=== PATIENT | male | born 1945 | race Caucasian/White ===

== ENCOUNTER 2024-09-23 08:22 | Outpatient (CLI) | payer MEDICARE ==
[2024-09-23 08:58] LABS: BASOPHILS # (AUTO) 0.1 X10'3 (0-0.2); BASOPHILS % (AUTO) 0.9 % (0-1); EOSINOPHILS # (AUTO) 0.1 X10'3 (0-0.9); EOSINOPHILS % (AUTO) 0.7 % (0-6); HEMATOCRIT 45.8 % (42.0-52.0); HEMOGLOBIN 15.3 g/dl (14.0-17.9); LYMPHOCYTES # (AUTO) 1.4 X10'3 (1.1-4.8); LYMPHOCYTES % (AUTO) 17.4 % (21-51); MEAN CORPUSCULAR HEMOGLOBIN 32.1 PG (27.0-31.0); MEAN CORPUSCULAR HGB CONC 33.5 g/dL (33.0-36.5); MEAN CORPUSCULAR VOLUME 95.7 FL (78-98); MEAN PLATELET VOLUME 7.2 FL (7.4-10.4); MONOCYTES # (AUTO) 0.8 X10'3 (0-0.9); MONOCYTES % (AUTO) 9.9 % (2-12); NEUTROPHILS # (AUTO) 5.6 X10'3 (1.8-7.7); NEUTROPHILS % (AUTO) 71.1 % (42-75); PLATELET COUNT 200 X10'3 (140-440); RED BLOOD COUNT 4.78 X10'6 (4.70-6.10); RED CELL DISTRIBUTION WIDTH 16.4 % (11.5-14.5); WHITE BLOOD COUNT 7.9 X10'3 (4.5-11.0)
[2024-09-23 09:10] LABS: APTT 24 SECONDS (22-32)
[2024-09-23 09:23] LABS: ALANINE AMINOTRANSFERASE 45 U/L (12-78); ALBUMIN 3.1 G/DL (3.4-5.0); ALBUMIN/GLOBULIN RATIO 0.9 (1.1-1.5); ALKALINE PHOSPHATASE 372 IU/L (46-116); ANION GAP 6 (8-16); ASPARTATE AMINO TRANSFERASE 23 U/L (10-37); BILIRUBIN,TOTAL 0.6 MG/DL (0.1-1.0); BLOOD UREA NITROGEN 20 MG/DL (7-18); BUN/CREATININE RATIO 22.5 (10.0-20.0); CALCIUM 8.6 MG/DL (8.5-10.1); CHLORIDE 106 MMOL/L (99-107); CREATININE 0.89 MG/DL (0.60-1.10); GLUCOSE 93 MG/DL (70-104); POTASSIUM 4.1 MMOL/L (3.5-5.1); SODIUM 140 MMOL/L (135-145); TOTAL CARBON DIOXIDE 28.3 MMOL/L (24-32); TOTAL PROTEIN 6.4 G/DL (6.4-8.2); eGFR 83 ML/MIN
--- NOTE | 2024-09-23 10:44 | VASCULAR REPORT ---
Carotid Duplex Clinical History: TAVR Comparison: None Technique: Duplex Doppler evaluation of the extracranial carotid and vertebral arteries including color Doppler and spectral/pulsed waveform analysis was performed. Findings: RIGHT SIDE: The peak systolic velocities are 83 cm/s in the CCA, 69 cm/s in the ICA. The ICA/CCA ratio is 1.01. The external carotid artery is patent with peak systolic velocity of 113 cm/s proximally. The subclavian artery is patent with peak systolic velocity of 102 cm/s. There is appropriate antegrade flow in the right vertebral artery. LEFT SIDE: The peak systolic velocities are 134 cm/s in the CCA, 80 cm/s in the ICA. The ICA/CCA ratio is 0.88. The external carotid artery is patent with peak systolic velocity of 109 cm/s proximally. The subclavian artery is patent with peak systolic velocity of 83 cm/s. There is appropriate antegrade flow in the left vertebral artery. IMPRESSION: Less than 50% stenosis of bilateral carotid systems secondary to presence of atherosclerotic plaque. Antegrade flow is present in bilateral vertebral bodies. Multiphasic flow is present in the bilatera l subclavian arteries. Reference: Radiology 2003; 229:340-346 Normal ICA PSV is <125 cm/sec and no plaque or intimal thickening is visible sonographically addition al criteria include ICA/CCA PSV ratio <2.0 and ICA EDV <40 cm/sec <50% ICA stenosis ICA PSV is <125 cm/sec and plaque or intimal thickening is visible sonographically additional criteria include ICA/CCA PSV ratio <2.0 and ICA EDV <40 cm/sec 50-69% ICA stenosis ICA PSV is 125-230 cm/sec and plaque is visible sonographically additional criter ia include ICA/CCA PSV ratio of 2.0-4.0 and ICA EDV of 40-100 cm/sec 70% ICA stenosis but less than near occlusion ICA PSV is >230 cm/sec and visible plaque and luminal narrowing are seen at fuentes-scale and color Doppler ultrasound (the higher the Doppler parameters lie above the threshold of 230 cm/sec, the greater the likelihood of severe disease) additional criteria include ICA/CCA PSV ratio >4 and ICA EDV >100 cm/sec
[2024-09-23] MEDS ORDERED: IODIXANOL 320 MG/ML INFUS..BTL 100ML IV ONE (11:11)
--- NOTE | 2024-09-23 11:50 | RADIOLOGY REPORT ---
DI CHEST,TWO VIEWS CLINICAL HISTORY: AV STENOSIS,SOB,CAROTID STENOSIS COMPARISON: None TECHNIQUE: Frontal and lateral view of the chest was obtained FINDINGS: Lines and Tubes: None Lungs: No focal consolidation. Pleura: No effusion. No pneumothorax. Cardiomediastinal contours: Unremarkable Bones: No acute osseous abnormality. IMPRESSION: No acute cardiopulmonary disease.
--- NOTE | 2024-09-23 12:45 | ELECTROCARDIOGRAPH REPORT ---
[facility] Test Date: 2024-09-23 Test Time: 08:55:34 Pat Name: VILMA STALEY Department: PRE/OP CARDIOLOGY Room: Gender: M Office Coordinator Receptionist: JOHNNIE : 1945 Requested By: DUARTE MANNING Order Number: [id number] Reading MD: Dr. Irvin Lester Measurements Intervals Smoot Rate: 67 P: 17 MA: 167 QRS: -36 QRSD: 96 T: 71 QT: 403 QTc: 426 Interpretive Statements Sinus rhythm [employer] Inferior infarct, old Electronically Signed On 09-24-2024 6:50:[address] Irvin Lester Please click the below link to view image of tracing.
--- NOTE | 2024-09-23 18:42 | CARDIOLOGY REPORT ---
APPROVED REPORT EXAM: Limited 2D, Doppler, and color-flow Echocardiogram. Patient Location: OUT-PATIENT Blood Pressure: 108 / 55 mmHg Heart Rate: 68 bpm Rhythm: SINUS Indications PRE - TAVR RE-ASSESSMENT OF AORTIC VALVE Communication Arts Lecturer: Estephanie MARTIN MD / Inteventionalist: Estephanie Daniels MD Previous echo: 2D Dimensions LVOT Diameter 2.39 (1.8-2.4cm) Ao Asc Diam.4.00 cm M-Mode Dimensions Left Atrium(MM) 4.38 (2.5-4.0cm) IVSd 1.07 (0.7-1.1cm) LVDd 4.67 (4.0-5.6cm) Aortic Root 4.01 (2.2-3.7cm) PWd 0.97 (0.7-1.1cm) IVSs 1.43 cm LVDs 3.28 (2.0-3.8cm) FS (%) 30 % PWs 1.46 cm ESV(Teich) 43.3 ml LVEF(%) 57 (>50%) Aortic Valve AoV Peak Uday. 392.1 cm/s AoV VTI 78.0 cm AO Peak GR. 62.0 mmHg AO Mean GR. 36 mmHg LVOT VTI 20.02 cm LVOT Peak Uday. 98.3 cm/s CAITIE (VMAX) 1.12 cm2 CAITIE (VTI) 1.15 cm2 LEFT VENTRICLE Normal LV size and wall thickness. Overall systolic function is normal. LVEF is 65-70%. RIGHT VENTRICLE RV is normal size and function. ATRIA Left atrium is mildly dilated. AORTIC VALVE Trileaflet AV appears heavily calcified with significant stenosis demonstrated by reduced excursion a nd increased transvalvular and ascending aorta turbulance. CAITEI is measured at 1.12 cmsq. Peak / mean gradients of 62 / 36 mmHG. Peak velocity is measured at 3.92 m/sec. Mild insufficiency. MITRAL VALVE Mild MV annular calcification without stenosis. Trace regurgitation. TRICUSPID VALVE TV appears structurally normal with trace regurgitation. PULMONIC VALVE Normal PV without stenosis, physiologic insufficiency. GREAT VESSELS Aortic root is mildly dilated. Ascending aorta is dilated. PERICARDIUM Normal pericardium. No effusion. Conclusion Normal LV size and wall thickness. Overall systolic function is normal. LVEF is 65-70%. RV is normal size and function. Left atrium is mildly dilated. Trileaflet AV appears heavily calcified with significant stenosis demonstrated by reduced excursion a nd increased transvalvular and ascending aorta turbulance. CAITIE is measured at 1.12 cmsq. Peak / miguel angel n gradients of 62 / 36 mmHG. Peak velocity is measured at 3.92 m/sec. Mild insufficiency. Mild MV annular calcification without stenosis. Trace Mild moderate severe regurgitation. TV appears structurally normal with trace regurgitation. Aortic root is mildly dilated. Ascending aorta is dilated. Normal pericardium. No effusion.
--- NOTE | 2024-09-25 16:38 | RADIOLOGY REPORT ---
Procedure: CT CTA TAVR Reason for study/Clinical History: Chest pain, evaluate for dissection. Comparison Study: None Exam Date: 09/23/2024 11:28 AM TECHNIQUE: Multiplanar reformatted images were generated from volumetric data acquired on a multidetector CT [facility]. Cardiac gating was utilized. Arterial phase images were obtained through the chest, abdomen and pelvis following intravenous administration of contrast material. 100 mL visipaque [address] dose reduction techniques were utilized. 3-D reconstructions were performed on an independent work station. Radiation Dose Information: CT Dose: CTDI volume is 74 mGy. Dose-length product is 2801 mGy*cm FINDINGS: Vascular: Aortic measurements: Aortic annulus: 30.8 x 25.1 mm Sinus of valsalva: right cusp 38.4 mm, left cusp 39.1 mm, non-coronary cusp 39.2 mm Right coronary distance: 21.2 Left coronary distance: 17.9 ST junction 34 mm Ascending aorta 40 mm Aortic arch 28 mm Descending aorta 25 mm Aortic hiatus 25 mm Upper abdominal aorta 24 mm Minimal abdominal aorta 13.6 mm Right common iliac 7.82 mm, tortuosity index 1.59 Left common iliac 9.87 mm, tortuosity index 1.5 There is ectasia the ascending aorta. No aortic dissection. Aortic arch anatomy is conventional. Ther e is conventional coronary artery anatomy. Scattered calcified atherosclerotic plaque. No central pulmonary embolism. There is normal dimension of the main pulmonary artery. Heart is normal. There are no intracardiac filling defects. No pericardial effusion. Lower neck: Right thyroid cyst or nodule measuring up to 43 mm. Mediastinum: Numerous subcentimeter mediastinal lymph nodes. Lungs: Patchy ground-glass opacities in both lungs. Subpleural ground-glass opacity and nodularity in both lungs. Atelectasis and scarring in the lung bases. Pleura: No effusion or pneumothorax. Chest wall: No acute abnormality. Abdomen and Pelvis: Liver: Cyst in the dome of the liver measuring up to 103 mm. Smaller cyst in the inferior right lobe of the liver. Early arterial enhancing focus in the left lobe of the liver measuring up to 12 mm. Gallbladder: Normal in appearance. Spleen: Normal in appearance. Pancreas: Subcentimeter cysts in the tail of the pancreas. Adrenals: Normal in appearance. Kidneys: Bilateral renal calculi measuring up to 5 mm. No hydronephrosis. Bowel: Normal in appearance. Peritoneum: No free air or free fluid. Lymph nodes: Retroperitoneal and iliac chain lymphadenopathy, largest lymph node measuring up to 11 m m. Pelvic structures: Prostate is enlarged. Bilateral fat containing inguinal hernias. Bones: Diffuse osseous metastatic disease throughout the visualized chest abdomen and pelvis. IMPRESSION: 1. TAVR planning with vascular measurements as described above. 2. Ascending aortic aneurysm measuring up to 40 mm. 3. Right thyroid cyst or nodule measuring up to 43 mm. Recommend further evaluation with thyroid ultr asound and ultrasound-guided biopsy. 4. Limited evaluation of the lungs. Low lung volumes. Patchy ground-glass opacities in both lungs. Subpleural ground-glass opacities and nodularity in both lungs. Atelectasis and scarring in the lung bases. Consider follow-up exam. 5. Numerous subcentimeter mediastinal lymph nodes. Retroperitoneal and iliac chain lymphadenopathy. Findings are concerning for malignant disease. Clinical correlation and continued follow-up is recomm ended. CT-guided biopsy could be attempted of the largest retroperitoneal lymph node. 6. Cysts in the liver including a large cyst in the dome of the liver. Early arterial enhancing focus in the left lobe of the liver is nonspecific. This can be further evaluated with MRI of the abdomen with contrast. 7. Subcentimeter cysts in the tail of the pancreas. This could also be evaluated with MRI of the abdo men with contrast. 8. Bilateral nonobstructive renal calculi. Prostatomegaly. 9. Diffuse sclerotic osseous metastatic disease. Patient does not have a known primary cancer recomme nd further evaluation with PET-CT to evaluate for primary. PET-CT could help guide CT-guided biopsy f or tissue diagnosis. HS:Y
== END 2024-09-23 23:59 | disposition home or self-care (01) ==
LOC: RAD 08:22
PROVIDERS: ATTEND Internal Medicine Cardiovascular Disease
DX: I08.0 Rheumatic disorders of both mitral and aortic valves (principal); I70.0 Atherosclerosis of aorta; R06.02 Shortness of breath; I65.23 Occlusion and stenosis of bilateral carotid arteries
CPT/HCPCS: 36415; 71046; 80053; 85025; 85610; 85730; 93005; 93308; 93880; Q9967